=== PATIENT | female | born 1940 | race Caucasian/White ===

== ENCOUNTER 2024-09-27 09:11 | Emergency (ER) | payer MEDICARE, SELFPAY ==
--- NOTE | ~2024-09-27 | CT_ITS ---
EXAMINATION: CTA NECK WITH CONTRAST (STROKE) CTA BRAIN WITH CONTRAST (STROKE) CLINICAL INFORMATION: Dizziness, sudden onset COMPARISON: None available. TECHNIQUE: CTA of the head and neck was performed in the axial plane from the mediastinum to the skull vertex using 70 mL Omnipaque 350 intravenous contrast. Additional reformatted multiplanar images including maximum intensity projection MIP images are generated on the CT workstation. This CT examination was performed using dose optimization techniques as appropriate, variously including the following: *Automated exposure control *Adjustment of mA and/or kV according to patient size (this includes techniques or standardized protocols for targeted exams where dose is matched to indication/reason for exam; i.e. extremities or head) *Use of iterative reconstruction technique. DLP: 1571 mGy centimeter. FINDINGS: The degree of stenosis determined by criteria similar to NASCET. Brain: No acute intracranial hemorrhage, mass effect, midline shift, hydrocephalus or herniation. Johnson-white matter differentiation is normal. 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 Prominence of the extra-axial CSF spaces along the frontal and temporal regions. Posterior cranial fossa contents demonstrated no acute intracranial hemorrhage or mass effect. Calcified plaques in the cavernous supraclinoid segments of the ICA. Sellar/suprasellar region demonstrated no gross masses. Degenerative changes in the periodontal C1 region. 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 Tympanic cavities and mastoid air cells are aerated. Small air-fluid level volume, right maxillary sinus. Chest CTA: The thoracic aortic arch is patent with normal diameter without focal stenosis or intimal flap. Neck CTA: Right CCA: Normal patency. No focal stenosis. No intimal flap. Right ICA: Calcified plaque. Normal patency. No focal stenosis. No intimal flap. Left CCA: Normal patency. No focal stenosis. No intimal flap. Tortuosity in the proximal segment. Left ICA: Mild calcified plaque. Normal patency. No focal stenosis. No intimal flap. Tortuosity in the proximal to mid segments. V1/V2 segments: Normal patency. No focal stenosis. No intimal flap. Left vertebral artery is dominant. Both origin is from the subclavian arteries.. Brain CTA: Anterior cerebral circulation: ICAs: Normal patency. No focal stenosis. No abrupt cut off. MCA's: Normal patency. No focal stenosis. No abrupt cut off. Bifurcation/trifurcation demonstrated normal vascular irregularity. ACAs: Normal patency. No focal stenosis. No abrupt cut off. Small caliber right A1 segment. Anterior communicating artery is patent. Ophthalmic arteries are patent. Posterior communicating arteries are patent. Posterior cerebral circulation: V3/V4 segments: Normal patency. No focal stenosis. No intimal flap. Posterior inferior cerebellar arteries are patent. Basilar artery: Normal patency. No focal stenosis. No abrupt cut off. No intimal flap. Superior cerebellar arteries are patent. operations research group manager: Normal patency. No focal stenosis. No abrupt cut off. Ancillary findings: Pulmonary mosaic pattern. 7 mm noncalcified pulmonary nodule, apical segment right upper lung lobe. Multilevel cervical spondylosis C3 C7 more conspicuous at C6-7. 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 The main cerebral venous sinuses are patent without intraluminal filling defects. CT/CT angio head neck IMPRESSION: No main cerebral artery occlusion or embolus. No dissection. No gross cerebral aneurysm. 7 mm pulmonary nodule, right lung apex. Consider small airway disease versus small pulmonary artery disease versus mild interstitial lung edema. Cervical spondylosis, multilevel. This critical test result is communicated to: Physician clerical administrative assistant in the emergency department Narda Limon via [employer] at 12:20 PM on September 27, 2024. Electronically signed by: Marcelo Hager MD 09/27/2024 12:21 PM EDT
[2024-09-27 09:22] VITALS: BP 145/72; BP 148/67; PULSE 83; PULSE 88; RESP 18; TEMP 36.4; O2SAT 96; O2SAT 97; BMI 28.7
--- NOTE | 2024-09-27 09:33 | ECG_ITS ---
Test Reason : dizziness Blood Pressure : */* mmHG Vent. Rate : 78 BPM Atrial Rate : 78 BPM P-R Int : 166 ms QRS Dur : 136 ms QT Int : 436 ms P-R-T Axes : 50 -65 2 degrees QTcB Int : 497 ms Normal sinus rhythm Right bundle branch block Left anterior fascicular block Bifascicular block Minimal voltage criteria for LVH, may be normal variant ( R in aVL ) Abnormal ECG No previous ECGs available Referred By: Narda Limon Electronically Signed By: KATELYN SOLER MD
--- NOTE | 2024-09-27 09:35 | ED.GENADULT ---
HPI - General Adult General Chief complaint: Dizziness Stated complaint: DIZZY WHILE WORKING OUT PER EMS Time Seen by Provider: 09/27/24 09:35 Source: patient, family (patient's daughter) and EMS Mode of arrival: EMS Limitations: no limitations History of Present Illness ED Provider: Narda Limon PA-C HPI narrative: 84 year old female with PMHx Fred's, macular degeneration, chronic lichen sclerosis, and RBBB, presenting to the ED c/o dizziness. Reports she was doing exercises while lying on her back at 0730 this morning and when she went to stand up became very dizzy and felt like the room was spinning . She reports the dizziness was reproduced when moving her head side to side and now feels like her ears are blocked. During the dizziness episodes, she reports face pressure L > R, and nausea. Denies CHISHOLM, hearing loss, sore throat, CP, SOB, abd pain, V/D, numbness/tingling, weakness in extremities, facial droop, or hx vertigo. Denies trauma/falls/pain. Onset (ago): hour(s) Related Data Previous Rx's ?Medication ?Instructions ?Recorded meclizine 25 mg tablet 25 mg PO BID PRN dizziness #7 tabs 09/27/24 Allergies Allergy/AdvReac Type Severity Reaction Status Date / Time sulfite Allergy Anaphylaxis Verified 09/27/24 09:27 Review of Systems Constitutional: Constitutional: Reports no additional constitutional complaints, Denies chills, Denies fever(s) and Denies night sweats Eyes: Eyes: Reports no additional eye complaints, Denies eye discharge, Denies loss of vision and Denies eye pain ENT: Reports dizziness ( room spinning ) and Denies hearing loss Cardiovascular: Cardiovascular: Reports no additional cardiovascular complaints, Denies chest pain, Denies lightheadedness, Denies Loss of Consciousness and Denies dyspnea Respiratory: Respiratory: Reports no additional respiratory complaints and Denies dyspnea Gastrointestinal: Gastrointestinal: Reports no additional gastrointestinal complaints, Denies abdominal pain, Denies change in bowel habits, Denies change in stool character, Denies diarrhea, Reports nausea and Denies vomiting Genitourinary: Genitourinary: Denies hematuria, Denies urinary frequency, Denies dysuria, Denies urinary incontinence, Denies urinary hesitancy and Denies urinary urgency Musculoskeletal: Musculoskeletal: Reports no additional musculoskeletal complaints, Denies numbness and Denies tingling Neurologic: Reports dizziness ( room spinning ), Denies loss of vision, Denies numbness and Denies tingling Psychiatric: Psychiatric: Reports no additional psychiatric complaints Endocrine: Endocrine: Reports no additional endocrine complaints Hematologic/Lymphatic: Hematologic/Lymphatic: Reports no additional hematologic/lymphatic complaints Allergic/Immunologic: Allergic/Immunologic: Reports no additional allergic/immunologic complaints PMFSH Past Medical History Attestation statement: The following information was validated with the patient. (patient's daughter validated all information) Source: old records reviewed, obtained from family (patient's daughter provided additional history and confirmed the history provided by the patient.) and nursing notes reviewed Physical Exam ED Vital Signs: Vital Signs - 24 hr 09/27/24 09:22 09/27/24 10:56 09/27/24 14:21 Temperature 97.5 F Pulse Rate 83 93 91 Respiratory Rate 18 18 16 Blood Pressure 148/67 H 145/72 H 140/62 H Pulse Oximetry 96 96 95 Oxygen Delivery Method Room Air Room Air Room Air 09/27/24 15:34 Temperature 98.0 F Pulse Rate 86 Respiratory Rate 16 Blood Pressure 129/51 L Pulse Oximetry 95 Oxygen Delivery Method Room Air BMI result Body Mass Index 28.7 Const General: cooperative, no acute distress, alert and awake Nutritional Appearance: well nourished Orientation/consciousness: patient oriented x3 Limitations: no limitations HENMT Head: Yes normal to inspection and Yes atraumatic Ears: hearing grossly normal bilaterally, external ears normal and TM's normal bilaterally General nose exam: Normal external nose present, no nasal discharge noted and no epistaxis Face and sinus: Yes normal facial exam, Yes face symmetric, No abrasion and No laceration Mouth: Normal oral and palatal mucosa present, no drooling and no muffled voice Throat: Yes posterior oropharynx normal and Yes uvula midline Eyes General: appearance normal, both eyes and all related structures Periorbital: periorbital findings normal Eyelids: Yes eyelids normal Conjunctivae: conjunctivae normal Pupils: Equal, round and reactive pupils present EOM: EOMs intact bilaterally Neck Neck: Yes normal visual inspection, Yes full ROM and Yes no lymphadenopathy Chest Chest palpation & inspection: normal inspection of the chest Resp Effort & Inspection: normal respiratory effort and able to speak in complete sentences GI Inspection: Yes normal to inspection Neuro General: patient oriented x3, moves all extremities and CN's II-XI intact bilaterally Cranial nerves: Yes Equal, round and reactive pupils present Cognition (Neuro): normal cognition Motor exam (neuro): 5/5 motor strength present throughout Sensory Exam: Normal double simultaneous stimulation for sensation Extrem General: Yes normal to inspection, Yes full ROM and Yes capillary refill normal Psych Appearance: grossly normal Mental Status: mental status grossly normal Affect: normal affect Attitude: cooperative Thought process: Normal thought process present Thought content: Normal thought content present Insight: Good insight present (Psych) NIH Stroke Scale Internal: Initial- Upon Arrival Level of Consciousness: Alert Level of Consciousness Questions: Answers both questions correctly Level of Consciousness Commands: Performs both tasks correctly Best Gaze: Normal Visual: No visual loss Facial Palsy: Normal Motor Arm (Right): No drift Motor Arm (Left): No drift Motor Leg (Right): No drift Motor Leg (Left): No drift Limb Ataxia: Absent Sensory: Normal Best Language: No aphasia Dysarthia: Normal Extinction and Inattention: No abnormality Score: 0 Medications Administered Discontinued Medications Generic Name Dose Route Start Last Admin Trade Name Trevon PRN Reason Stop Dose Admin Diphenhydramine HCl 25 mg 09/27/24 10:09 09/27/24 10:54 Diphenhydramine Hcl 50 Mg/Ml Vial IVPUSH 09/27/24 10:10 25 mg ONCE ONE Administration Iohexol 100 ml 09/27/24 12:04 09/27/24 12:05 Iohexol 350 Mg/Ml 100 Ml Infus..Btl IV 09/27/24 12:05 70 ml ONCE ONE Administration Meclizine HCl 25 mg 09/27/24 09:36 09/27/24 09:56 Meclizine Hcl 25 Mg Tablet PO 09/27/24 09:37 25 mg ONCE ONE Administration Medical Decision Making Medical Decision Making [facility] Narrative: Patient is an 84 year old assigned female at with a history of fred's, macular degeneration, chronic lichen sclerosis, and RBBB presenting to the emergency department today with dizziness. Patient's physical exam was as noted in the physical exam portion of this note. Patient's blood work was unremarkable. Patient's EKG was unremarkable. Patient's CTA head/neck showed no acute process. Patient was evaluated by physical who agreed with BPPV and performed an Manolo maneuver. Patient was given PO Meclazin which she stated helped her symptoms significantly. I explained my physical exam findings as well as all test results to the patient and the patient's daughter. I answered all questions asked by the patient and the patient's daughter. I stressed the importance of the patient taking her medication as directed (either prescribed or as the over the counter packaging recommends). I stressed the importance of the patient following up with her primary care provider and a neurologist. I stressed the importance of the patient returning to the emergency department immediately if her symptoms were to worsen or if she were to develop any dizziness, shortness of breath, difficulty breathing, chest pain, blurry vision, loss of vision, nausea, vomiting, abdominal pain, fever, chills, back pain, or any other complaints. Patient and the patient's daughter verbalized agreement and understanding with this treatment plan and discharge. Differential Diagnosis Differential Diagnoses: The differential diagnosis associated with the presentation includes BPPV Dizziness CVA Admission/Observation Consideration of admission/observation: Escalation of care including admission/observation considered Patient would have been admitted to the hospital had her work up had any findings where hospital admission was appropriate and her clinical presentation warranted hospital admission. Consult Healthcare Provider Management of the patient was discussed with: Information Technology Audit Manager (consulted with the physical therapy team as noted in the MDM Rationale portion of this note.) Lab Data [facility] Lab Attestation statement: I reviewed the patient's lab results. My interpretation of these results are in the MDM Rationale portion of this note. 09/27/24 10:09 09/27/24 10:09 Labs: Lab Results 09/27/24 Range/Units 10:09 WBC 6.6 (4.8-10.8) X10*3/uL RBC 4.80 (4.20-5.50) X10*6/uL Hgb 14.4 (12.0-16.0) g/dl Hct 44.1 (37.0-47.0) % MCV 91.9 (80.0-98.0) fL MCH 30.0 (27.0-33.0) pg MCHC 32.7 (31.0-35.0) g/dl RDW 14.6 (11.0-16.0) % Plt Count 206 (160-400) X10*3/uL MPV 9.7 (9.4-12.3) fL Immature Gran % (Auto) 0.3 (0.0-0.4) % Neut % (Auto) 76.6 H (45-73) % Lymph % (Auto) 13.0 L (20-40) % Boone % (Auto) 7.3 (2-11) % Eos % (Auto) 2.0 (0-4) % Baso % (Auto) 0.8 (0-2) % Lymph # (Auto) 0.9 L (1.2-4.9) X10*3/uL Boone # (Auto) 0.5 (0.1-1.2) X10*3/uL Eos # (Auto) 0.1 (0.0-0.4) X10*3/uL Baso # (Auto) 0.1 (0.0-0.2) X10*3/uL Abs Immat Gran (auto) 0.02 (0.00-0.03) X10*3/uL Absolute Neuts (auto) 5.1 (2.0-8.3) x10*3/uL Absolute Nucleated RBC 0.000 (0.0-0.012) X10*3/uL Nucleated RBC % (auto) 0.0 (0.0-0.2) /100WBC PT 12.1 (10.9-12.4) SEC INR 1.0 (0.9-1.1) Sodium 139 (135-145) mmol/L Potassium 4.2 (3.3-5.1) mmol/L Chloride 112 H (96-108) mmol/L Carbon Dioxide 22 (22-29) mmol/L Anion Gap 9 L (12-20) BUN 19 H (9-16) mg/dL Creatinine 0.62 (0.5-1.4) mg/dL Estim Creat Clear Calc 74.8 Estimated GFR > 60 Random Glucose 100 (60-115) mg/dL Calcium 9.4 (8.4-10.2) mg/dL Magnesium 1.9 (1.6-2.6) mg/dL Total Bilirubin 0.4 (0.0-1.0) mg/dL AST 34 H (5-31) U/L ALT 18 (0-31) U/L Alkaline Phosphatase 79 (39-117) U/L Troponin I High Sens < 2.7 (<3.5-17.0) ng/L Total Protein 6.4 L (6.5-8.0) g/dL Albumin 4.0 (3.5-5.0) g/dL Influenza Type A (PCR) NEGATIVE (Negative) Influenza Type B (PCR) NEGATIVE (Negative) RSV RNA Qual (PCR) NEGATIVE (Negative) SARS-CoV-2 RNA (RT-PCR) NEGATIVE (Negative) Independent Interpretation I performed an independent interpretation of an: EKG and CT Scan Interpretation: My interpretation is in agreement with the radiologist's impression of this imaging study. Report Number: [id number]: Total DLP = 1571.00 mGy-cm EXAMINATION: CTA NECK WITH CONTRAST CTA BRAIN WITH CONTRAST CLINICAL INFORMATION: Dizziness, sudden onset COMPARISON: None available. TECHNIQUE: CTA of the head and neck was performed in the axial plane from the mediastinum to the skull vertex using 70 mL Omnipaque 350 intravenous contrast. Additional reformatted multiplanar images including maximum intensity projection MIP images are generated on the CT workstation. This CT examination was performed using dose optimization techniques as appropriate, variously including the following: *Automated exposure control *Adjustment of mA and/or kV according to patient size (this includes techniques or standardized protocols for targeted exams where dose is matched to indication/reason for exam; i.e. extremities or head) *Use of iterative reconstruction technique. DLP: 1571 mGy centimeter. FINDINGS: The degree of stenosis determined by criteria similar to NASCET. Brain: No acute intracranial hemorrhage, mass effect, midline shift, hydrocephalus or herniation. Johnson-white matter differentiation is normal. 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 Prominence of the extra-axial CSF spaces along the frontal and temporal regions. Posterior cranial fossa contents demonstrated no acute intracranial hemorrhage or mass effect. Calcified plaques in the cavernous supraclinoid segments of the ICA. Sellar/suprasellar region demonstrated no gross masses. Degenerative changes in the periodontal C1 region. 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 Tympanic cavities and mastoid air cells are aerated. Small air-fluid level volume, right maxillary sinus. Chest CTA: The thoracic aortic arch is patent with normal diameter without focal stenosis or intimal flap. Neck CTA: Right CCA: Normal patency. No focal stenosis. No intimal flap. Right ICA: Calcified plaque. Normal patency. No focal stenosis. No intimal flap. Left CCA: Normal patency. No focal stenosis. No intimal flap. Tortuosity in the proximal segment. Left ICA: Mild calcified plaque. Normal patency. No focal stenosis. No intimal flap. Tortuosity in the proximal to mid segments. V1/V2 segments: Normal patency. No focal stenosis. No intimal flap. Left vertebral artery is dominant. Both origin is from the subclavian arteries.. Brain CTA: Anterior cerebral circulation: ICAs: Normal patency. No focal stenosis. No abrupt cut off. MCA's: Normal patency. No focal stenosis. No abrupt cut off. Bifurcation/trifurcation demonstrated normal vascular irregularity. ACAs: Normal patency. No focal stenosis. No abrupt cut off. Small caliber right A1 segment. Anterior communicating artery is patent. Ophthalmic arteries are patent. Posterior communicating arteries are patent. Posterior cerebral circulation: V3/V4 segments: Normal patency. No focal stenosis. No intimal flap. Posterior inferior cerebellar arteries are patent. Basilar artery: Normal patency. No focal stenosis. No abrupt cut off. No intimal flap. Superior cerebellar arteries are patent. patient accounting representative: Normal patency. No focal stenosis. No abrupt cut off. Ancillary findings: Pulmonary mosaic pattern. 7 mm noncalcified pulmonary nodule, apical segment right upper lung lobe. Multilevel cervical spondylosis C3 C7 more conspicuous at C6-7. 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 The main cerebral venous sinuses are patent without intraluminal filling defects. CT/CT angio head neck IMPRESSION: No main cerebral artery occlusion or embolus. No dissection. No gross cerebral aneurysm. 7 mm pulmonary nodule, right lung apex. Consider small airway disease versus small pulmonary artery disease versus mild interstitial lung edema. Cervical spondylosis, multilevel. This critical test result is communicated to: Physician application assistant in the emergency department Narda Limon via [employer] at 12:20 PM on September 27, 2024. Electronically signed by: Marcelo Hager MD 09/27/2024 12:21 PM EDT Dictated By: Marcelo Caruso MD Signed By: Electronically signed by Marcelo Gonzalez MD 09/27/24 1229 I independently interpreted this EKG and am in agreement with the below findings: Vent. Rate: 78 BPM Atrial Rate: 78 BPM P-R Int: 166 ms QRS Dur: 136 ms QT Int: 436 ms P-R-T Axes: 50 -65 2 degrees QTcB Int: 497 ms Normal sinus rhythm Right bundle branch block Left anterior fascicular block Bifascicular block Minimal voltage criteria for LVH, may be normal variant ( R in aVL ) No previous ECGs available Electronically Signed By: LEXX SOLER MD Dictated By: Lexx Soler MD Signed By: Electronically signed by Lexx Soler MD 09/27/24 1410 Radiology Impression Discussion of test interpretation with radiology: I have reviewed the radiologist's reading. Independent Historian Clinical information obtained from an independent historian. History obtained from or confirmed by: EMS (EMS provided additional history and confirmed the history provided by the patient. ) and Other (patient's daughter provided additional history and confirmed the history provided by the patient. ) Critical Care Time Critical Care Time Critical Care Time: Yes Total Critical Care Time: 41 Attestation: I spent 41 minutes of Critical Care Time with this patient. This does not include time spent on separately reported billable procedures. Discharge Plan Discharge Clinical Impression: Benign paroxysmal positional vertigo Patient Disposition: Home, Self-Care Instructions: Benign Paroxysmal Positional Vertigo (ED), Dizziness (ED) Additional Instructions: Follow up with your primary care provider, a neurologist, and physical therapy. Return to the emergency department immediately if your symptoms worsen or if you develop any numbness, tingling, dizziness, shortness of breath, difficulty breathing, chest pain, blurry vision, loss of vision, nausea, vomiting, abdominal pain, fever, chills, back pain, or any other complaints. Please see the information below about our Patient Portal. If you are not yet enrolled in the [facility] Patient Portal, you will receive an enrollment email invitation following your visit to any [facility] [place] [place] care setting. You may also self-enroll in the Patient Portal by visiting our website: [email or web address] The following information is required to access the Patient Portal: - Your [facility] [place] Medical Record Number - Your personal home email address (must match what is in your electronic medical record, Registration staff can assist with this) - Name - Date of Capabilities of the Patient Portal: - Message some providers - View upcoming appointments - Access your health summary, medical history, and visit history - View current conditions and allergies - View procedure and lab results - View your medications, including guidelines, side effects, and precautions - Complete pre-appointment questionnaires requested by your provider - Ready summary reports of your office visits and procedures To access the Patient Portal Mobile [employer], follow these directions: - Search [employer] in the [employer] Store or [employer] Play Store - Download the [employer] - Search for [facility] - Enter your login/password Prescriptions: New meclizine 25 mg tablet 25 mg PO BID PRN (Reason: dizziness) Qty: 7 0RF Referrals: [facility] [place] Neuro/Sleep [Provider Group] (Call to establish and follow up with a neurologist. ) Thony Winter MD [Primary Care Provider] - Interventions: ED Discharge Assessment Last Done: 09/27/24 15:34 Discharge Date/Time: 09/27/24 15:35 Print Language: Syriac
[2024-09-27] MEDS: Meclizine HCl 25 MG TABLET PO (09:56)
[2024-09-27 10:13] LABS: MANUAL DIFF FLAG NO
[2024-09-27 10:16] LABS: Basophils Absolute Auto 0.1 X10*3/uL (0.0-0.2); Basophils Percent Auto 0.8 % (0-2); Eosinophils Absolute Auto 0.1 X10*3/uL (0.0-0.4); Hematocrit 44.1 % (37.0-47.0); Hemoglobin 14.4 g/dl (12.0-16.0); Imm Gran Abs Auto 0.02 X10*3/uL (0.00-0.03); Imm Gran Pct Auto 0.3 % (0.0-0.4); Lymphocytes Absolute Auto 0.9 X10*3/uL (1.2-4.9); Mean Corpuscular HGB Conc 32.7 g/dl (31.0-35.0); Mean Corpuscular Volume 91.9 fL (80.0-98.0); Mean Platelet Volume 9.7 fL (9.4-12.3); Monocytes Absolute Auto 0.5 X10*3/uL (0.1-1.2); Monocytes Percent Auto 7.3 % (2-11); Neutrophils Absolute Auto 5.1 x10*3/uL (2.0-8.3); Neutrophils Percent Auto 76.6 % (45-73); Platelet Count 206 X10*3/uL (160-400); Red Cell Distribution Width 14.6 % (11.0-16.0); White Blood Count 6.6 X10*3/uL (4.8-10.8)
[2024-09-27 10:24] LABS: Prothrombin Time 12.1 SEC (10.9-12.4)
[2024-09-27 10:35] LABS: Alanine Aminotransferase 18 U/L (0-31); Alkaline Phosphatase 79 U/L (39-117); Anion Gap 9 (12-20); Aspartate Amino Transferase 34 U/L (5-31); Bilirubin Total 0.4 mg/dL (0.0-1.0); Blood Urea Nitrogen 19 mg/dL (9-16); Calcium 9.4 mg/dL (8.4-10.2); Carbon Dioxide 22 mmol/L (22-29); Chloride 112 mmol/L (96-108); Creatinine Clr Calc Pharmacy 74.8; Estimated Glomerular Filt Rate > 60; Glucose Random 100 mg/dL (60-115); Magnesium 1.9 mg/dL (1.6-2.6); Potassium 4.2 mmol/L (3.3-5.1); Sodium 139 mmol/L (135-145); Total Protein 6.4 g/dL (6.5-8.0)
[2024-09-27 10:37] LABS: Troponin-I High Sensitivity < 2.7 ng/L (<3.5-17.0)
[2024-09-27 10:52] LABS: Influenza A PCR NEGATIVE (Negative); Influenza B PCR NEGATIVE (Negative); Resp Syncy Virus RNA Qual PCR NEGATIVE (Negative); SARS COV2 PCR INHOUSE NEGATIVE (Negative)
[2024-09-27] MEDS: diphenhydrAMINE HCL 50 MG/ML VIAL 25 MG IVPUSH (10:54)
--- OUTSIDE RECORDS SUMMARY | 2024-09-27 10:55 | XMS_ITS ---
Author Organization [facility] Address [address] [place] [address] Care Team Providers Care Kinesiologist Name Role Phone Thony Winter MD Primary Care Provider Corrie Nugent Unavailable [phone] Allergies Allergen (clinical drug ingredient) Drug/Non Drug Allergy documented on EMR Reaction Allergy Type Onset Date Status Bisodium Sulfate (uncoded) Unknown Allergy Active sulfamethoxazole / trimethoprim Bactrim Unknown Drug Allergy Active Novocain Unknown Drug Allergy Active Adhesive Unknown Allergy Active REASON FOR VISIT pcp-12/2023, Foot pain Medications Medication SIG (Take, Route, Fr equency, Duration) Notes Start Date End Date Status predniSONE Active Mucinex Active Simvastatin Active Zolpidem Tartrate Ac tive Clobetasol Propionate Active Sinus Rinse Active Aleve Active Levothyroxine Sodium Active Angely Active PreserVision AREDS 2 Active Social History Tobacco Use: Social History Observation Description Date Details (start date - stop date) Never Smoker NA - NA Tobacco Use/Smoking Question Answer Notes Are you a: nonsmoker Additional Findings: Tobacco Non-User Current no n-smoker Alcohol Screen Question Answer Notes Did you have a drink containing alcohol in the p ast year? No Points 0 Interpretation Negative Tobacco use other than smoking: Question Answer Notes Are you an other tobacco user? No Vital Signs Height 5 ft 6 in in 04/05/2024 Weight 170 lbs 04/05/2024 BMI 27.44 kg/m2 04/05/2024 Encounters Encounter Location Date Provider Diagnosis [facility] [address] [place] [address] 04/05/2024 Corrie Song Bursitis of intermetatarsal bursa of left foot M77.52 and Metatarsalgia, left foot M77.42 Assessments Encounter Date Diagnosis (ICD Code) Assessment Notes Treatment Notes Treatment Clinical Notes Section Notes 04/05/2024 Bursitis of intermetatarsal bursa of left foot (ICD-10 - M77.52) 04/05/2024 Metatarsalgia, left foot (ICD-10 - M77.42) Plan Of Treatment Next Appt Details Follow Up: prn, Reason: Progress Notes * Azalea MELO WDOB:1940 (83 yo F)Acc No.[id number]:04/05/2024 Progress Notes Patient:?FatoumatayouAzalea Provider:?Corrie Song DPM :1940???Age:83 Y???Sex:Female D ate:04/05/2024 Address:[address] [place], [place] [id number] Pcp:Thony Winter MD Subjective: * Chief Complaints: * ???Pcp-12/2023Foot pain * HPI: ???Foot Pain:?Location:?Bottom, Forefoot, LEFT.?Duration:?several months.?Onset:?gradual.?Course:?improved.?Treatments:?rest/alter normal daily activity, orthotics.? * ROS:?General/Constitutional:?Nausea?denies.?Vomiting?denies.?Hunger Thirst?denies.?Loss appetite?denies.?Chills?denies.?Fatigue?denies.?Fever?denies.?Night Sweats?denies.?Unexplained weight loss?denies.?Unexplained weight gain?denies.?HEENTM:?Dentures?denies.?Dizziness?denies.?Glasses/contacts?admits.?Retinopathy?de nies.?Blurred/double vision?denies.?TMJ?denies.?Discharge/drainage?denies.?Implants?denies.?Sore throat?denies.?Dental implants?denies.?Hard of hearing ?denies.?Difficulty chewing/swallowing/speaking?denies.?Nose bleeds?denies.?Sore mouth?denies.?Respiratory:?On Oxygen?denies.?Pneumonia/pleurisy?denies.?Bronchitis?denies.?Emphysema?denies.?C oughing?denies.?Cough blood?denies.?Shortness of breath?denies.?Wheezing?denies.?Cardiovascular:?Pacemaker?denies.?MVP?denies.?WPW?denies.?CHF?denies.?Heart attack?denies.?Septal defect?denies.?Rapid beat?denies.?Chest pain ?denies.?Atrial Fib.?denies.?Murmur/Palpitations?denies.?Gastrointestinal:?Hemorrhoids?admits.?Stomach/Abdominal pain?denies.?Dark blood stool?denies.?Irritable bowel ?denies.?Constipation?denies.?Diarrhea?denies.?Hematology:?Swelling?denies.?Clots?denies.?Varicose Veins?denies.?Bruising?denies.?Bleeding problem?denies.?Genitourinary:?Blood urine?denies.?Frequent/Painfu/urination/bladder control?denies.?Kidney stones?denies.?Infection (UTI)?denies.?Nephropathy?denies.?sex trans dis (STD)?denies.?Prostate?denies.?Musculoskeletal:?Hammertoes?admits.?Bunions?denies.?Back Pain?admits.?Muscle Cramps/ Resting?denies.?Muscle cramps / walking?admits.?Generalized aches and pains?admits.?Weakness?denies.?Integ.:?Bishop?denies.?Scars?denies.?Corns/calluses?denies.?Ingrown nails?denies.?Painful nails?denies.?Open Sores?denies.?Rashes?denies.?Neurologic:?Difficulty sleeping?denies.?Brain disorder?denies.?Numbness?denies.?Balance trouble?denies.?Confusion?denies.?Fainting/blackouts?denies.?Tingling?denies.?Tr emors?denies.? * Medical History:? * Surgical History:?tonsillect caren 1948broken nose 1963broken arm [id number] * Hospitalization/Major Diagno stic Procedure:?Denies Past Hospitalization * Family History:?Mother: dece ased, diagnosed with Family history of arthritis, Diabetic - NIDDM.?Father: , diagnosed with Family history of arthritis, Unspecified essential hypertension.?Siblings: diagnosed with Unspecified essential hypertension.? * Social History:?Tobacco Use:?Tobacco Use/Smoking?Are you a:?nonsmoker ?Additional Findings: Tobacco Non-User?Current non-smoker ?Tobacco use other than smoking?Are you an other tobacco user??No ???Drugs/Alcohol:?Drugs?Have you used drugs other than those for medical reasons in the past 12 months??No ?Alcohol Screen?Did you have a drink containing alcohol in the past year??No ?Points?0 ?Interpretation?Negative ???Miscellaneous:?Caffeine: yes, 2-3 cups per day. ?Children: yes, 3. ?Exercise: yes, walking, reading, gardening/yard work. ?Marital status: . 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 * Medications:?TakingClobetaso l Propionate Simvastatin Levothyroxine Sodium PreserVision AREDS 2 Angely Aleve Sinus Rinse Mucinex predniSONE Zolpidem Tartrate Medication List reviewed and reconciled with the patientTaking Clobetasol Propionate Taking Simvastatin Taking Levothyroxine Sodium Taking PreserVision AREDS 2 Taking Angely Taking Aleve Taking Sinus Rinse Taking Mucinex Taking predniSONE Taking Zolpidem Tartrate Medication List reviewed and reconciled with the patient * Allergies:?BactrimNovocainAd hesiveBisodium Sulfateyes[Allergies Verified] Objective: * Vitals:?Ht: 5 ft 6 in, Wt: 1 70, BMI: 27.44, Shoe size: 10.5-11, Ht-cm: 167.64 cm, Wt-k.11 kg. * Examination: ???General Examination: ?GENERAL APPEARANCE:?Reveals a pleasant, alert, well-nourished, well- developed, well hydrated individual, who demonstrates proper attention to hygiene/body habitus, and is in no acute distress, Pt serves as own?historian for office visit today.?ORIENTED:?person, place, and time.?Neurological: ?SENSORY:?Neurological exam reveals intact sensorium, pain sensation normal, vibration sensation intact, pinprick sensation is normal in the lower extremities, Pt denies, anesthesia, burning, paresthesia, tingling, B/L.?TINEL'S COMPRESSION:? Negative tarsal tunnel, sunil pedis, and medial calcaneal nerves, Left.?DEEP TENDON REFLEXES:?Achilles, 2/4, B/L.?Vascular: ?DP PULSES(B):?3/4, B/L.?PT PULSES(B):?3/4, B/L.?CAPILLARY FILL TIME:?immediate, all digits, B/L.?TROPHIC CONDITION-TEXTURE/ELASTICITY/TURGOR/HAIR GROWTH(B):?normal, B/L.?TEMPERTURE GRADIENT(C):?warm to cool, proximal to distal, B/L.?PIGMENTATION:?normal, B/L.?EDEMA(C):?absent, B/L.?Dermatologic: ?SKIN FINDINGS:?Skin exam reveals normal texture, elasticity, and turgor. There are no masses. The interspaces are clear.?Orthopedic: ?MUSCLE STRENGTH:?5/5 all groups in a symmetrical fashion , B/L.?MPJ PATHOLOGY:?No Pain,? to plantar MPJ(s), 2-4?LEFT, No MPJ pain with ROM, [ - ] Ecchymosis.?Neuroma Pain: ?PALPATION:?No interspace pain noted on palpation, LEFT.? Assessment: * Assessment: 1.?Metatarsalgia, left foot - M77.42 (Primary)?2.?Bursitis of intermetatarsal bursa of left foot - M77.52? Plan: * Treatment: * Procedure Codes:? * Preventive Medicine:? ??Counseling:?Discussion:?-03: Office or other outpatient visit for the evaluation and management of a new patient, which required a medically appropriate history and/or examination and LOW level of DECISION MAKING for: 1 STABLE ACUTE UNCOMPLICATED PROBLEM, 2 OR MORE MINOR PROBLEMS, OR 1 STABLE CHRONIC PROBLEM, THAT POSE(S) A LOW RISK FOR MORBIDITY/MORTALITY. The visit on the day of the encounter encompassed interpreting the data and educating the patient as to the nature of their condition, treatment options available according to their individual PMH, meds, allergies, and overall health/living conditions, as well as any potential risks or complications that may occur from a failure to adhere to, and participate in, the recommended course of therapy. The discussion included a complete verbal, and/or written explanation of the examination results, any x-rays taken, the proposed diagnosis, and outline of the treatment plan. A schedule for future care needs was also explained. The patient verbalized an understanding of the instructions at this time and agreed to be an active participant in their treatment. If the patient should think of any questions or concerns after the visit, I have encouraged the patient to call the office.?Metatarsalgea:?I explained to the patient the possible etiologies of their Metatarsalgea Foot pain, including foot type/shoegear/activity level/exercise routine and the risks/benefits of all the different treatment options for pain including: No treatment at all, Rest, Ice, NSAIDs(only if well tolerated after meals), New/supportive Shoegear, Strappings and Tapings, Foot/Ankle AFO Bracing, Stretching exercises, Deep Tissue Massage, Arch support/shoe inserts, Custom orthoses, Topical analgesics including Aspercream/Voltaren gel, Physical Therapy, Cortisone injection therapy, EPAT/ESWT. Advantages and disadvantages of each option were discussed and the patients questions re: shoegear, custom vs prefabricated inserts, activity level, PO vs Topical medications (and their respective potential complications/drug interactions/side effects), and consistency in home treatment regimens for optimal success were answered to their verbally confirmed satisfaction.?Orthotics:?I explained to the patient the benefits of OT use. I explained that orthoses are medically necessary to decrease the foot pain through proper mechanical control, support of their foot, decrease pain under the painful metatarsal by supplementing the soft tissue, cushion the forefoot by supplementing the soft tissue.?P.R.I.C.E.:?The patient was counseled on the use of P.R.I.C.E. and NSAIDS (if well tolerated) to aid in the recovery from their painful condition.?Shoe Gear Counseling:?The patient and I reviewed the types of shoes they should be wearing. My recommendation included obtaining a well-fitted shoe with a good supportive, non-foldable nor twistable sole, plenty of toe/room for the forefoot, and proper arch support. Based on todays examination, I recommended the patient look for new shoes, by having their feet professionally measured. We discussed that generally the best time of the day for a shoe fitting is the afternoon. Different shoes types and brands to best match the patients occupation and vocation were discussed. Specific brand selection will be up to the patient, their individual foot condition/deformities, and fit. The patient and I reviewed the standard new shoe break in period by wearing them for a few hours a day while checking for redness or sores as wear time is increased. The patient verbally confirmed to understanding the information discussed.? * Follow Up:?prn * Images: * Sign off status: Completed true * Provider:?Corrie Song, DPSaima Date:? Generated for Gilda dorsey/Noe/eTransmitting on:?09/27/2024 10:55 AM EDT History and Physical Notes * HPI (History of Present Illness) Category Sub-Category Detail Notes Category Not es Foot Pain Location: Bottom, Forefoot, LEFT Duration: several months Onset: gradual Course: improved Treatments: rest/alter normal da saniya activity, orthotics Examination Category Sub-Category Detail Notes Category Not es Neuroma Pain PALPATION: No interspace pain noted on palpation, LEFT Neurological SENSORY: Neurological exa m reveals intact sensorium, pain sensation normal, vibration sensation intact, pinprick sensation is normal in the lower extremities, Pt denies, anesthesia, burning, paresthesia, tingling, B/L TINEL'S COMPRESSION: Negative tarsal sherri tonny, sunil pedis, and medial calcaneal nerves, Left DEEP TENDON REFLEXES: Achilles, 2/4, B/L Dermatologic SKIN FINDINGS: Skin exam reveal s normal texture, elasticity, and turgor. There are no masses. The interspaces are clear Orthopedic MPJ PATHOLOGY: No Pain, to plan tar MPJ(s), 2-4 LEFT, No MPJ pain with ROM, [ - ] Ecchymosis MUSCLE STRENGTH: 5/5 all groups in a symmetrical fashion , B/L General Examination GENERAL APPEARANCE: Reveals a pleasant, alert, well- nourished, well-developed, well hydrated individual, who demonstrates proper attention to hygiene/body habitus, and is in no acute distress, Pt serves as own historian for office visit today ORIENTED: person, place, and t abdiel Vascular DP PULSES (B): 3/4, B/L PT PULSES (B): 3/4, B/L CAPILLARY FILL TIME: immediate, all digi ts, B/L TEMPERTURE GRADIENT (C): warm to cool, p roximal to distal, B/L TROPHIC CONDITION-TEXTURE/ELASTICITY/TURGOR/HAIR GROWTH (B): normal, B/L EDEMA (C): absent, B/L PIGMENTATION: normal, B/L
--- OUTSIDE RECORDS SUMMARY | 2024-09-27 10:55 | XMS_ITS | Patient Health Record ---
Author Organization [facility] Address [address] [place] [address] Care Team Providers Care Bladder Tier Name Role Phone Thony Winter MD Primary Care Provider Corrie Nugent Unavailable [phone] Allergies Allergen (clinical drug ingredient) Drug/Non Drug Allergy documented on EMR Reaction Allergy Type Onset Date Status Bisodium Sulfate (uncoded) Unknown Allergy Active sulfamethoxazole / trimethoprim Bactrim Unknown Drug Allergy Active Novocain Unknown Drug Allergy Active Adhesive Unknown Allergy Active Reason For Referral No Information Medications Medication SIG (Take, Route, Fr equency, Duration) Notes Start Date End Date Status Sinus Rinse Active Aleve Active predniSONE Active Mucinex Active Levothyroxine Sodium Active Simvastatin Active Angely Active PreserVision AREDS 2 Active Zolpidem Tartrate Ac tive Clobetasol Propionate Active Social History Tobacco Use: Social History [...] 04/05/2024 Encounters Encounter Location Date Provider Diagnosis [facility] [address] [place] [address] 04/05/2024 Corrie Song Bursitis of intermetatarsal bursa of left foot M77.52 and Metatarsalgia, left foot M77.42 [facility] [address] [place] [address] 01/12/2024 Corrie Song Assessments Encounter Date Diagnosis (ICD Code) Assessment Notes Treatment Notes Treatment Clinical Notes Section Notes 04/05/2024 Metatarsalgia, left foot (ICD-10 - M77.42) 04/05/2024 Bursitis of intermetatarsal bursa of left foot (ICD-10 - M77.52) Plan Of Treatment No Information Insurance Providers Payer Name Payer Address Payer Phone Subscriber Number Group Number Insured Name Patient Relationship to Insured Coverage Start Date Coverage End Date [employer] 65 Medicare [address] [place] [address] [id number] Azalea Cameron Self - patient is the insured Medical (General) History Medical History History ICD Code osteoarthritis Back,Hip,and Knee pain CAD (Cholesterol) Cataracts Macular degeneration Osteoporosis Rheumatic fever sinusitis thyroid Measles Mumps Chicken pox Lichens Sclerosis Surgical History Surgery Date(Month/Year) tonsillectomy 1947 broken nose 1963 broken arm [id number]
[2024-09-27 10:56] VITALS: BP 145/72; PULSE 93; RESP 18; O2SAT 96
--- OUTSIDE RECORDS SUMMARY | 2024-09-27 10:56 | XMS_ITS ---
Author Organization [facility] Address [address] [place] [address] Care Team Providers Care Annealing Furnace Tender Name Role Phone Thony Winter MD Primary Care Provider Corrie Nugent [phone] REASON FOR VISIT CLIENT EXECUTIVE PPWK Entered Encounters Encounter Location Date Provider Diagnosis [facility] [address] [place] [address] 01/12/2024 Corrie Song Plan Of Treatment No Information Progress Notes * Azalea MELODOB:1940 ( 83 yo F)Acc No.[id number]:01/12/2024 Patient:?Azalea Melo :1940???Age:83 Y???Sex:Female [address] [place], [address] * true * Date:? Generated for Printi sunita/Noe/eTransmitting on:?09/27/2024 10:55 AM EDT
--- NOTE | 2024-09-27 10:57 | PC.NURSE ---
reports feeling a little better with less dizziness. has been premedicated for potential IV contrast allergy. Pt remains axox3. no neuro deficits. daughter at bedside and all aware ofplan of care
[2024-09-27] MEDS: iohexoL 350 MG/ML 100 ML INFUS..BTL IV (12:05)
[2024-09-27 14:21] VITALS: BP 140/62; PULSE 91; RESP 16; O2SAT 95
--- NOTE | 2024-09-27 14:26 | PC.NURSE ---
Pt has yet to be seen by PT. Confirmed with Caitlin PT she will be able to see patient this afternoon. Caitlin currently in meeting, will eval patient after her meeting. Pt and provider Narda aware of plan. pt. VSS, currently eating snack on stretcher.
[2024-09-27 15:34] VITALS: BP 129/51; PULSE 86; RESP 16; TEMP 36.7; O2SAT 95
== END 2024-09-27 15:35 | disposition home or self-care (01) ==
PROVIDERS: Physician Assistant Medical; Emergency Provider Emergency Medicine; PCP Internal Medicine
DX: H81.10 Benign paroxysmal vertigo, unspecified ear (principal); Z03.818 Encounter for observation for suspected exposure to other biological agents ruled out
CPT/HCPCS: 0241U; 70496; 70498; 80053; 83735; 84484; 85025; 85610; 93005; 96374; 97161; 99284; 99285; J1200; Q9967

== ENCOUNTER → 2024-09-27 09:33 | Outpatient (BNV) | payer MEDICARE, SELFPAY | PROVIDERS: PCP Internal Medicine; Visit Provider Internal Medicine Cardiovascular Disease | DX: I45.2 Bifascicular block (principal) | CPT/HCPCS: 93010 ==

== ENCOUNTER → 2024-09-27 09:35 | Outpatient (BNV) | payer MEDICARE, SELFPAY | PROVIDERS: PCP Internal Medicine; Visit Provider Radiology Diagnostic Radiology | DX: R42 Dizziness and giddiness (principal) | CPT/HCPCS: 70496; 70498 ==

== ENCOUNTER 2024-11-02 08:00 | Outpatient (RCR) | payer MEDICARE, SELFPAY | END 2024-12-05 13:54 | disposition home or self-care (01) | LOC: HO.PT 08:00 | PROVIDERS: PCP Nurse Practitioner Adult Health; Visit Provider Nurse Practitioner Adult Health | DX: H81.4 Vertigo of central origin (principal) | CPT/HCPCS: 95992; 97110; 97112; 97161 ==